=== PATIENT | female | born 2000 | race Caucasian/White ===

== ENCOUNTER 2022-12-20 08:00 | Outpatient (CLI) | payer BC ==
--- NOTE | 2022-12-20 14:12 | XRAY Report ---
PROCEDURE: Knee 4 View BILAT INDICATIONS: BILAT KNEE PAIN TECHNIQUE: Three views of the right knee and three views of the left knee (bilateral AP sunrise view, bilateral standing AP view, standing left lateral view, standing right lateral view. COMPARISON: None. FINDINGS: No joint space narrowing or other arthritic features. Normal patellar height and position bilaterally . No suspicious lytic or blastic osseous lesion. No acute finding. No knee joint effusion. No acute s oft tissue abnormality. IMPRESSION: Normal bilateral knee radiographs. Reviewed by: Terence Calvo MD on 12/20/2022 2:11 PM PST Approved by: Terence Calvo MD on 12/20/2022 2:11 PM PST Station ID: [id number]
== END 2022-12-20 23:59 | disposition home or self-care (01) ==
LOC: DI.WOS 08:00
PROVIDERS: ATTEND Physician Assistant Surgical
DX: M25.562 Pain in left knee (principal); M25.561 Pain in right knee

== ENCOUNTER 2023-02-04 15:45 | Outpatient (CLI) | payer BC | END 2023-02-04 15:46 | disposition home or self-care (01) | LOC: LAB 15:45 | PROVIDERS: ATTEND Nurse Practitioner Acute Care | DX: Z02.0 Encounter for examination for admission to educational institution (principal); Z11.1 Encounter for screening for respiratory tuberculosis | CPT/HCPCS: 81599; 86480 ==